=== PATIENT | female | born 1980 | race Caucasian/White ===

== ENCOUNTER 2016-08-28 23:35 | Emergency (ER) | payer MEDICAID ==
[~2016-08-28] VITALS: Ht 154.9 cm; Wt 75.8 kg
[2016-08-29] MEDS ORDERED: SODIUM CHLORIDE 0.9% 1,000ML IVBOLUS ONE
[2016-08-29] MEDS ORDERED: SODIUM CHLORIDE FLUSH 10ML SYR IVF ONE
[2016-08-29 00:24] LABS: HEMOGLOBIN 13.3 g/dL (11.7-16.4)
[2016-08-29 00:38] LABS: ASPARTATE AMINO TRANSFERASE 15 U/L (15-37); BLOOD UREA NITROGEN 16 mg/dL (7-18)
[2016-08-29] MEDS ORDERED: OMNIPAQUE 350 MG/ML, 100ML BOTTLE ONE (01:09)
[2016-08-29 02:11] VITALS: BP 97/56
== END 2016-08-29 02:13 | disposition home or self-care (01) ==
LOC: ED 23:50
DX: S30.1XXA Contusion of abdominal wall, initial encounter (principal); S20.212A Contusion of left front wall of thorax, initial encounter; S40.021A Contusion of right upper arm, initial encounter; S90.02XA Contusion of left ankle, initial encounter; W01.0XXA Fall on same level from slipping, tripping and stumbling without subsequent striking against object, initial encounter; Y93.89 Activity, other specified; Y92.89 Other specified places as the place of occurrence of the external cause; Y99.8 Other external cause status
CPT/HCPCS: 36415; 71260; 72125; 74177; 80053; 83690; 84703; 85025; 85610; 85730; 96360; 99285; J7030; Q9967

== ENCOUNTER 2017-10-21 07:15 | Emergency (ER) | payer MEDICAID ==
[~2017-10-21] VITALS: Ht 154.9 cm; Wt 67.0 kg
[2017-10-21 07:22] VITALS: BP 102/68
== END 2017-10-21 09:01 | disposition home or self-care (01) ==
LOC: ED 08:55
DX: S50.11XA Contusion of right forearm, initial encounter (principal); S60.211A Contusion of right wrist, initial encounter; X58.XXXA Exposure to other specified factors, initial encounter; Y93.89 Activity, other specified; Y92.009 Unspecified place in unspecified non-institutional (private) residence as the place of occurrence of the external cause; Y99.8 Other external cause status
CPT/HCPCS: 99284

== ENCOUNTER 2017-12-04 08:49 | Emergency (ER) | payer MEDICAID ==
[~2017-12-04] VITALS: Ht 152.4 cm; Wt 67.0 kg
[2017-12-04] MEDS ORDERED: ALPR0.25 PO (09:33)
[2017-12-04 10:17] VITALS: BP 120/67
== END 2017-12-04 10:36 | disposition home or self-care (01) ==
LOC: ED 10:24
DX: S00.87XA Other superficial bite of other part of head, initial encounter (principal); W54.0XXA Bitten by dog, initial encounter; Y93.89 Activity, other specified; Y92.009 Unspecified place in unspecified non-institutional (private) residence as the place of occurrence of the external cause; Y99.8 Other external cause status
CPT/HCPCS: 70100; 99284

== ENCOUNTER 2020-02-27 13:47 | Emergency (ER) | payer MEDICAID ==
[~2020-02-27] VITALS: Ht 152.4 cm; Wt 83.7 kg
[~2020-02-27 13:47] MED LIST: ALPR0.25 PO; ANTI-DEPRESSANT
--- NOTE | 2020-02-27 14:42 | NUR ---
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
--- NOTE | 2020-02-27 15:12 | NUR ---
THIS IS A 39 YO FEMALE COMING IN FOR WORSENING, CONSTANT LOW BACK PAIN X 1 MONTH, SEVERE LOWER ABD/PELVIC PAIN WITH VOIDING, STATES "IT FEELS LIKE LABOR, LIKE I AM ACTIVELY PUSHING A BABY OUT". RECENT UTERINE BIOPSY BY [employer] DONE SATURDAY, AND IS SCHEDULED TO HAVE PARTIAL HYSTERECTOMY AT [facility] ON 03/22/2020. LMP 02/04/20, STATES "I BLEED FOR A WEEK, THEN STOP FOR A WEEK, THEN BLEED AGAIN FOR 2-3 WEEKS. THAT IS WHY THEY DID THE BIOPSY". MONITORING IN PLACE, VSS, NADN, CALL LIGHT IN REACH
--- NOTE | 2020-02-27 15:17 | NUR ---
UA COLLECTED AND SENT
[2020-02-27 15:34] LABS: MICROSCOPIC INDICATED
[2020-02-27 16:09] VITALS: BP 111/60
--- NOTE | 2020-02-27 16:33 | NUR ---
Patient given discharge instructions and they have confirmed that they understand the instructions. Patient ambulatory with steady gait.
== END 2020-02-27 16:35 | disposition home or self-care (01) ==
LOC: ED 15:05
DX: N30.01 Acute cystitis with hematuria (principal)
CPT/HCPCS: 81001; 87077; 87086; 87186; 99283